=== PATIENT | male | born 2000 | race Two or more races ===

== ENCOUNTER 2022-11-10 12:36 | Emergency (ER) | payer SELFPAY ==
[~2022-11-10] VITALS: Ht 180.3 cm; Wt 63.5 kg
--- NOTE | 2022-11-10 12:59 | NUR ---
PT IN BED 7 NO S/S OF DISTRESS. C/O OF CHEST PAIN THAT TRANSITIONED TO RIB PAIN. NO ALCOHOL, TOBACO, OR COFFEE USE. WORKS IN [employer] OUT OF WORK FOR 2 MONTHS AND FEELING UNEASY ABOUT WORK. IN BED CONNECTED TO BEDSIDE MONITOR VITAL WNL
--- NOTE | 2022-11-10 15:00 | NUR ---
NO SOB OR RESPRTORY DISTRESS
[2022-11-10] MEDS ORDERED: IBUP-1955 PO (15:24)
--- NOTE | 2022-11-10 15:30 | NUR ---
Patient discharged to home in stable condition. Written and verbal after care instructions given. Patient verbalizes understanding of instruction.
[2022-11-10 15:31] VITALS: BP 135/69
== END 2022-11-10 15:33 | disposition home or self-care (01) ==
LOC: ER 12:53
DX: R07.89 Other chest pain (principal)
CPT/HCPCS: 71100-TC